=== PATIENT | female | born 1950 | race Caucasian/White ===

== ENCOUNTER 2024-09-06 10:30 | Outpatient (RCR) | payer MEDICARE, SELFPAY ==
--- OUTSIDE RECORDS SUMMARY | 2024-08-26 12:43 | XMS_ITS | Data Portability ---
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 Lab None recorded. Referral None recorded. Procedures None recorded. Surgeries None recorded. Imaging None recorded. Medication Orders azithromyci n 250 mg tablet 2023 024 [facility]/Pharmacy #[id number], [address] [place], [address], 15:16:41 promethazin e-DM 6.25 mg-15 mg/5 mL oral syrup 2023 024 [facility]/Pharmacy #[id number], [address] [place], [address], 15:16:41 Patient TargetsNo targets recorded. Patient Instructions Encounter Date Encounter Id Patient Instructions Last Modified By Organization Details Last Modified Time 09/16/2023 [id number] Sinusitis is an infection of the lining of the sinus cavities in your head. Sinusitis often follows a cold. It causes pain and pressure in your head and face. In most cases, sinusitis gets better on its own in 1 to 2 weeks. But some mild symptoms may last for several weeks. Sometimes antibiotics are needed. Follow-up care is a markham part of your treatment and safety. Be sure to make and go to all appointments, and call your doctor if you are having problems. It's also a good idea to know your test results and keep a list of the medicines you take. How can you care for yourself at home? Take an regf-yhq-mpltyrp pain medicine, such as acetaminophen (Tylenol), ibuprofen (Advil, Motrin), or naproxen (Aleve). Read and follow all instructions on the label. If the doctor prescribed antibiotics, take them as directed. Do not stop taking them just because you feel better. You need to take the full course of antibiotics. Be careful when taking vztt-ogv-cwlsjkg cold or flu medicines and Tylenol at the same time. Many of these medicines have acetaminophen, which is Tylenol. Read the labels to make sure that you are not taking more than the recommended dose. Too much acetaminophen (Tylenol) can be harmful. Breathe warm, moist air from a steamy shower, a hot bath, or a sink filled with hot water. Avoid cold, dry air. Using a humidifier in your home may help. Follow the directions for cleaning the machine. Use saline (saltwater) nasal washes. This can help keep your nasal passages open and wash out mucus and bacteria. You can buy saline nose drops at a grocery store or drugstore. Or you can make your own at home by adding 1 teaspoon of salt and 1 teaspoon of baking soda to 2 cups of distilled water. If you make your own, fill a bulb syringe with the solution, insert the tip into your nostril, and squeeze gently. Blow your nose. Put a hot, wet towel or a warm gel pack on your face 3 or 4 times a day for 5 to 10 minutes each time. Try a decongestant nasal spray like oxymetazoline (Afrin). Do not use it for more than 3 days in a row. Using it for more than 3 days can make your congestion worse. When should you call for help? Call your doctor now or seek immediate medical care if: You have new or worse swelling or redness in your face or around your eyes. You have a new or higher fever. Watch closely for changes in your health, and be sure to contact your doctor if: You have new or worse facial pain. The mucus from your nose becomes thicker (like pus) or has new blood in it. You are not getting better as expected. [email or web address] Not available 09/16/2023 15:16:55 1. Patient to follow up with PRIMARY CARE and or here if the symptoms do not improve. 2. Patient directed to RETURN ANYTIME if have question/concern. 3. Patient instructed that [facility] IS OPEN EVERY DAY, EVERY HOLIDAY, AND EVERY WEEKEND FROM 8 AM to 8 PM - [phone] extension 1 4. Patient directed to CALL 911/and/or GO IMMEDIATELY to the emergency dept if symptoms worsen [email or web address] Not available 09/16/2023 15:12:02 Reason for Referral None Reported. Problems Name Problem SNOMED Code Status Onset Date Resolution Date Notes Provider Name and Address Organization Details Recorded Time Hypertensive disorder 52634601 Active 2023 [facility] 15:02:43 Hyperlipidemia 10921543 Active 2023 [facility] 15:03:03 Depressive disorder 26585410 Active 2023 [facility] 15:03:14 Problem Notes None recorded. Procedures Surgical History Date Name Laterality Status Provider Name and Address Organization Details Recorded Time 3 Most Recent Mammogram completed [facility] 09/16/2023 15:04:07 3 [facility] 15:04:15 0 Knee Replacement completed [facility] 09/16/2023 15:03:49 0 Lumpectomy completed [facility] 09/16/2023 15:03:40 Imaging Results None recorded. Procedure Notes None recorded. Medical Equipment None Reported. Allergies Allergen ID Allergen Name Allergen Category Reaction Reaction Severity Criticality Documentation Date Start Date Code Code System Note Provider Name and Address Organization Details Recorded Time 26092 [place] 12-Hour Nasal [place] medicatio n itching Not available high 09/16/2023 95023 4 RxNorm [facility] 4 15:00:13 Medications Name Sig Start Date Stop Date Status Note LastModified by Organization Details LastModified Time promethazine-D M 6.25 mg-15 mg/5 mL oral syrup Take 5 mL every 4 hours by oral route as needed for 7 days, for cough. 2023 active Not Available Not Available Not Avai lable atorvastatin 20 mg tablet Take 1 tablet every day by oral route. active Not Available Not Available No t Available azithromycin 250 mg tablet TAKE 2 TABLETS (500 MG) BY ORAL ROUTE ONCE DAILY FOR 1 DAY THEN 1 TABLET (250 MG) BY ORAL ROUTE ONCE DAILY FOR 4 DAYS 2023 active Not Available Not Available Not Avai lable citalopram 10 mg tablet Take 1 tablet every day by oral route. active Not Available Not Available No t Available atenolol 25 mg tablet Take 1 tablet every day by oral route. active Not Available Not Available No t Available Vitals Date Recorded Body height Respiratory rate Body mass index (BMI) Body weight Body temperature Oxygen saturation Oxygen saturation in Arterial blood by Pulse oximetry Heart rate Systolic blood pressure Diastolic blood pressure Provider Name and Address Organization Details Last Updated DateTime 4 165.1 cm 18 /min 22.5 kg/m2 15790.9 7 g 97.1 [degF] 95 % 95 % 71 /min 124 mm[Hg] 71 mm[Hg] Sulma Brice [facility] 4 14:59:44 Social History Question Answer Notes LastModified by Organizat ion Details LastModified Time Tobacco Smoking Status Never Smoker [facility] 09/16/2023 15:03:25 What Is Your Level Of Alcohol Consumption? Occasional clape Information not available 09/16/2023 Sex: Unknown Functional Status None recorded. Mental Status None recorded. Family History Nothing Reported. Medical History Condition Response Hypertension Y Depression Y High Cholesterol Y Gynecological History Statement/Question Response Date of Last Pap Smear 08/08/2023 Most Recent Mammogram 08/08/2023 Obstetrics History GPAL:G 3 P 0 0 0 0 Immunizations Vaccine Type Date Status Note Provider Nam e and Address Organization Details Recorded Time Influenza, MDCK, quadrivalent, PF 07/25/2017 completed [facility]ma [facility]ape null, [place] [facility] 09/16/2023 14:59:48 Influenza, high-dose, quadrivalent, PF 06/05/2020 completed Sulma Lape null, [place] [facility] 09/16/2023 14:59:48 Influenza, high-dose, quadrivalent, PF 06/07/2023 completed Sulma Lape null, [place] [facility], [facility] 09/16/2023 14:59:48 Influenza, adjuvanted, quadrivalent, PF 06/21/2022 completed [facility] null, [facility], [facility] 09/16/2023 14:59:48 COVID-19, mRNA, LNP-S, PF, 100 mcg/0.5mL dose or 50 mcg/0.25mL dose 09/16/2020 completed Sulma Lape null, [place] [facility], [facility] 09/16/2023 14:59:48 COVID-19, mRNA, LNP-S, PF, 100 mcg/0.5mL dose or 50 mcg/0.25mL dose 10/14/2020 completed Sulma Lape null, [place] [facility], [facility] 09/16/2023 14:59:48 COVID-19, mRNA, LNP-S, PF, 100 mcg/0.5mL dose or 50 mcg/0.25mL dose 10/17/2020 completed Sulma Lape null, [place] [facility], [facility] 09/16/2023 14:59:48 COVID-19, mRNA, LNP-S, PF, 100 mcg/0.5mL dose or 50 mcg/0.25mL dose 11/14/2020 completed Sulma Lape null, [place] [facility], [facility] 09/16/2023 14:59:48 COVID-19, mRNA, LNP-S, PF, 100 mcg/0.5mL dose or 50 mcg/0.25mL dose 12/11/2021 completed Sulma Lape null, [place] - [facility] 09/16/2023 14:59:48 COVID-19, mRNA, LNP-S, PF, 100 mcg/0.5mL dose or 50 mcg/0.25mL dose 04/27/2021 completed Sulma Lape null, [place] [facility] 09/16/2023 14:59:48 COVID-19, mRNA, LNP-S, PF, 50 mcg/0.5 mL 06/13/2023 completed Sulma Lape null, [place] [facility], [facility] 09/16/2023 14:59:48 Tdap 08/27/2019 completed Sulma Lape null, [place] [facility] 09/16/2023 14:59:48 Novel [id number] 09/28/2009 completed Sulma Lape null, [place] [facility] 09/16/2023 14:59:48 Influenza, split virus, quadrivalent, PF 07/28/2018 completed Sulma Lape null, [place] [facility] 09/16/2023 14:59:48 Respiratory syncytial virus (RSV) MAB, unspecified 07/09/2023 completed Sulma Lape null, [place] [facility] 09/16/2023 15:02:24 Past Encounters Encounter ID Performer Location Encounter Start Date Encounter Closed Date Diagnosis/Indication Diagnosis SNOMED-CT Code Diagnosis ICD10 Code [id number] Susie Sanchez, ROSALIE, S [facility] [address] [place] [address] 09/16/2023 14:40:09 09/16/2023 15:18:01 Sore throat 377413917 J02.9 Cough 58517743 R05.1 Acute fron kulwinder sinusitis 08689871 J01.10 Health Concerns Section Related Observation LastModified by Organization Detai ls LastModified Time None Recorded Concern Status LastModified by Organization Details LastModified Time None Recorded Advance Directives Directive None Recorded Payers Encounter Date Sequence Insurance Name Policy Number Policy Flynn Covered Member ID Flynn Member ID Guarantor Name 09/16/2023 2 [place] Roxann Riccis [id number] 3 Roxann Sung 09/16/2023 1 [place] [id number] Roxann Riccis [id number] Roxann Sung Notes Date Note Type Note Provider Name and Address Organization Details Recorded Time 09/16/2023 text/html Upper Respirator y (URI) Symptoms IM FMReported bypatient.Location:h ead; chest Presentation:sinus pressure / congestion;sharp throat pain;hurts to swallow;dry cough Severity:no pain Duration:constant Onset/Timing:onset date (09/02/23) Context:no sick contacts; no foreign travel; no recent injury; non-smoker Alleviating Factors:nothing helps Aggravating Factors:nothing makes it worse Associated Symptoms:no chest pain; no fever; no chills; no chest wall pain/discomfort; no shortness of breath; no sputum production; no headache; no cyanosis; no sweats; no rash;fatigue;morning cough;sore throat medication reconciliation done Susie Sanchez, ROSALIE, S [address], [place], [address], [facility], [facility] 09/16/2023 15:17:10 OBGyn Episode No OBEpisode recorded.
--- OUTSIDE RECORDS SUMMARY | 2024-08-31 09:25 | XMS_ITS | Data Portability ---
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 Patient Instructions Encounter Date Encounter Id Patient Instructions Last Modified By Organization Details Last Modified Time 09/16/2023 [id number] Sinusitis is an infection of the lining [...] care for yourself at home? Take an ibox-ouu-lmbuhkx pain medicine, such as acetaminophen (Tylenol), ibuprofen (Advil, Motrin), or naproxen (Aleve). Read and follow all instructions on the label. If the doctor prescribed antibiotics, take them as directed. Do not stop taking them just because you feel better. You need to take the full course of antibiotics. Be careful when taking oxnm-mfg-ggcsyhk cold or flu medicines and Tylenol at [...] if have question/concern. 3. Patient instructed that [facility] IS OPEN EVERY DAY, EVERY HOLIDAY, AND EVERY WEEKEND FROM 8 AM to 8 PM - [phone] extension 1 4. Patient directed to CALL 911/and/or GO IMMEDIATELY to the emergency dept if symptoms worsen [email or web address] Not available 09/16/2023 15:12:02 Reason for Referral None Reported. Problems Name Problem SNOMED Code Status Onset Date Resolution Date Notes Provider Name and Address Organization Details Recorded Time Hypertensive disorder 01594530 Active 2023 [facility] 4 15:02:43 Hyperlipidemia 38777984 Active 2023 [facility] 4 15:03:03 Depressive disorder 69012921 Active 2023 [facility] 4 15:03:14 Problem Notes None recorded. Procedures Surgical History Date Name Laterality Status Provider Name and Address Organization Details Recorded Time 3 Most Recent Mammogram completed [facility] 09/16/2023 15:04:07 3 Date of [facility] 15:04:15 0 Knee Replacement completed [facility] 09/16/2023 15:03:49 0 Lumpectomy completed [facility] 09/16/2023 15:03:40 Imaging Results None recorded. Procedure Notes None recorded. Medical Equipment None Reported. Allergies Allergen ID Allergen Name Allergen Category Reaction Reaction Severity Criticality Documentation Date Start Date Code Code System Note Provider Name and Address Organization Details Recorded Time 81253 [place] 12-Hour Nasal [place] medicatio n itching Not available high 09/16/2023 97789 4 RxNorm [facility] 4 15:00:13 Medications Name Sig Start Date [...] 4 165.1 cm 18 /min 22.5 kg/m2 48276.9 7 g 97.1 [degF] 95 % 95 % 71 /min 124 mm[Hg] 71 mm[Hg] Sulma Brice [facility] 4 14:59:44 Social History Question Answer Notes LastModified by Organizat ion Details LastModified Time Tobacco Smoking Status Never Smoker Sulma Brice [facility] 09/16/2023 15:03:25 What Is Your Level [...] quadrivalent, PF 07/25/2017 completed Sulma Lape null, [place] [facility], [facility] 09/16/2023 14:59:48 Influenza, high-dose, quadrivalent, PF 06/05/2020 completed Sulma Lape null, [place] [facility], [facility] 09/16/2023 14:59:48 Influenza, high-dose, quadrivalent, PF 06/07/2023 completed Sulma Lape null, [place] [facility], [facility] 09/16/2023 14:59:48 Influenza, adjuvanted, quadrivalent, PF 06/21/2022 completed Sulma Lape null, [facility], [facility] 09/16/2023 14:59:48 COVID-19, mRNA, LNP-S, PF, 100 mcg/0.5mL dose or 50 mcg/0.25mL dose 09/16/2020 completed Sulma Lape null, [place] [facility], [facility] 09/16/2023 14:59:48 COVID-19, mRNA, LNP-S, PF, 100 mcg/0.5mL dose or 50 mcg/0.25mL dose 10/14/2020 completed Sulma Lape null, [place] [facility], [facility] 09/16/2023 14:59:48 COVID-19, mRNA, LNP-S, PF, 100 mcg/0.5mL dose or 50 mcg/0.25mL dose 10/17/2020 completed Sulma Lape null, [place] [facility], [facility] 09/16/2023 14:59:48 COVID-19, mRNA, LNP-S, PF, 100 mcg/0.5mL dose or 50 mcg/0.25mL dose 11/14/2020 completed Sulma Lape null, [place] [facility], [facility] 09/16/2023 14:59:48 COVID-19, mRNA, LNP-S, PF, [...] [place] [facility], [facility] 09/16/2023 14:59:48 Tdap 08/27/2019 completed Sulma Lape null, [place] [facility] 09/16/2023 14:59:48 Novel [id number] 09/28/2009 completed Sulma Lape null, [place] [facility] 09/16/2023 14:59:48 Influenza, split virus, quadrivalent, PF 07/28/2018 completed Sumla Lape null, [place] [facility] 09/16/2023 14:59:48 Respiratory syncytial virus (RSV) MAB, unspecified 07/09/2023 completed Sulma Lape null, [place] [facility] 09/16/2023 15:02:24 Past Encounters Encounter ID Performer Location Encounter Start Date Encounter Closed Date Diagnosis/Indication Diagnosis SNOMED-CT Code Diagnosis ICD10 Code [id number] Susie Sanchez, ROSALIE, S [facility] [address] [place] [address] 09/16/2023 14:40:09 09/16/2023 15:18:01 Sore throat 699826780 J02.9 Cough 19341988 R05.1 Acute fron kulwinder sinusitis 36653584 J01.10 Health Concerns Section Related Observation LastModified by Organization Detai ls LastModified Time None Recorded Concern Status LastModified by Organization Details LastModified Time None Recorded Advance Directives Directive None Recorded Payers Encounter Date Sequence Insurance Name Policy Number Policy Flynn Covered Member ID Flynn Member ID Guarantor Name 09/16/2023 2 [place] Roxann Riccis [id number] Roxann Sung 09/16/2023 1 [place] [id number] Roxann Riccis [id number] Roxann Sung Notes Date Note Type Note [...] S [address], [place], [address], [facility], [facility] 09/16/2023 15:17:10 OBGyn Episode No OBEpisode recorded.
== END 2025-01-04 23:59 | disposition home or self-care (01) ==
PROVIDERS: PCP Family Medicine; Visit Provider Family Medicine
DX: R26.81 Unsteadiness on feet (principal); Z51.89 Encounter for other specified aftercare
CPT/HCPCS: 97110; 97162